=== PATIENT | male | born 1945 | race Hispanic/Latino ===

== ENCOUNTER 2019-03-26 23:30 | Observation (INO) | payer OTHER, MEDICARE ==
[~2019-03-26] VITALS: Ht 177.8 cm; Wt 76.5 kg
[~2019-03-26 23:30] MED LIST: AMLO5TAB9 PO; ASPI-1005 PO; ATOR20TA65 PO; CARV12.511 PO; FINA5TAB41 PO; ISOS10TA8 PO; LISI-613 PO; NITR0.4T50 SL; PANT40TA25 PO; TAMS0.4C32 PO
[2019-03-27 00:14] LABS: BASOPHILS % (AUTO) 0.6 % (0.0-5.0); EOSINOPHILS % (AUTO) 7.5 % (0.0-8.0); HEMATOCRIT 41.9 % (42-54); LYMPHOCYTES % (AUTO) 41.3 % (21.0-51.0); MEAN CORPUSCULAR HEMOGLOBIN 32.1 pg (27.0-33.0); MEAN CORPUSCULAR HGB CONC 34.5 g/dL (32.0-36.0); MEAN CORPUSCULAR VOLUME 93.2 fL (79-99); MONOCYTES % (AUTO) 6.3 % (3.0-13.0); NEUTROPHILS % (AUTO) 44.3 % (40.0-77.0); PLATELET COUNT (AUTO) 228 K/uL (130-400); RED BLOOD CELL COUNT(AUTO) 4.49 MIL/uL (4.50-6.20); RED CELL DISTRIBUTION WIDTH 13.6 % (11.0-15.5); WHITE BLOOD COUNT (AUTO) 5.5 K/uL (4.8-10.8)
[2019-03-27] MEDS ORDERED: NITROGLYCERIN 0.4 MG SL TAB SL ONE (00:14)
[2019-03-27] MEDS ORDERED: ASPIRIN 81MG TAB.CHEW ONE (00:15)
[2019-03-27 00:21] LABS: CREATININE 0.9 mg/dL (0.5-1.5); POTASSIUM 3.7 mmol/L (3.5-5.1)
[2019-03-27 00:24] LABS: PARTIAL THROMBOPLASTIN TIME 27.4 SEC (26.3-35.5); PROTHROMBIN TIME 10.5 SEC (9.6-11.6)
[2019-03-27 00:32] LABS: ALBUMIN 3.5 g/dL (3.5-5.0); BILIRUBIN,TOTAL 0.3 mg/dL (0.2-1.0); TOTAL PROTEIN, SERUM 6.9 g/dL (6.0-8.3)
[2019-03-27 02:40] VITALS: BP 157/87
[2019-03-27] MEDS ORDERED: ONDANSETRON HCL 4 MG/2 ML VIAL IVP PRN (03:45)
[2019-03-27] MEDS ORDERED: ACETAMINOPHEN 325 MG TAB PO PRN (03:45)
[2019-03-27] MEDS ORDERED: NITROGLYCERIN 0.4 MG SL TAB SL PRN (03:45)
[2019-03-27 05:09] LABS: HEMATOCRIT 42.3 % (42-54); MEAN CORPUSCULAR HEMOGLOBIN 32.4 pg (27.0-33.0); MEAN CORPUSCULAR HGB CONC 34.3 g/dL (32.0-36.0); MEAN CORPUSCULAR VOLUME 94.5 fL (79-99); NUCLEATED RED BLOOD CELLS 0.1 % (0.0-0.19); PLATELET COUNT (AUTO) 215 K/uL (130-400); RED BLOOD CELL COUNT(AUTO) 4.48 MIL/uL (4.50-6.20); RED CELL DISTRIBUTION WIDTH 13.6 % (11.0-15.5); WHITE BLOOD COUNT (AUTO) 5.5 K/uL (4.8-10.8)
[2019-03-27 05:23] LABS: CREATININE 0.9 mg/dL (0.5-1.5); POTASSIUM 4.5 mmol/L (3.5-5.1)
[2019-03-27 08:18] VITALS: BP 150/89
[2019-03-27] MEDS ORDERED: ASPIRIN 81MG TAB.CHEW PO SCH (09:00)
[2019-03-27] MEDS ORDERED: ENOXAPARIN SODIUM 40 MG/0.4 ML SYRINGE SQ SCH (09:00)
--- NOTE | 2019-03-27 09:01 | NUR ---
CM NOTES PT IN OBS STATUS WITH NO TRIGGERS AND NO CONCERNS VOCED- MET BRIEFLY WITH PT, CARLOTAP, AAOX3, LIVES W SPOUSE, DETAILED CM ASSESSMENT DEFERRED AT THIS TIME Addendum: 03/28/19 at 0903 by RUDYD BROWN RN CM Amended: Links added.
[2019-03-27] MEDS ORDERED: PANTOPRAZOLE SODIUM 40 MG TABLET.DR PO SCH (10:01)
[2019-03-27] MEDS ORDERED: CARVEDILOL 12.5 MG TABLET PO SCH (10:55)
[2019-03-27] MEDS ORDERED: AMLODIPINE BESYLATE 5 MG TAB PO SCH (10:56)
[2019-03-27] MEDS ORDERED: LISINOPRIL 20 MG TABLET PO SCH (10:56)
[2019-03-27] MEDS ORDERED: ISOSORBIDE MONONITRATE 20 MG TABLET PO SCH (10:56)
[2019-03-27 13:03] VITALS: BP 134/89
[2019-03-27 16:35] VITALS: BP 136/73
[2019-03-27] MEDS ORDERED: ATORVASTATIN CALCIUM 20 MG TABLET PO SCH (21:00)
[2019-03-27] MEDS ORDERED: TAMSULOSIN HCL 0.4 MG CAP.ER.24H PO SCH (21:00)
[2019-03-27] MEDS ORDERED: INSULIN HUMULIN R 100 UNIT/ML 3ML ONE (21:49)
== END 2019-03-27 18:30 | disposition home or self-care (01) ==
LOC: EDH 23:30 → EDHIP 03-27 01:20 → 3BH 03-27 01:34
PROVIDERS: ADMIT Internal Medicine Critical Care Medicine; ATTEND Internal Medicine Critical Care Medicine
DX: R00.2 Palpitations (principal); I44.7 Left bundle-branch block, unspecified; I10 Essential (primary) hypertension; E78.5 Hyperlipidemia, unspecified; K21.9 Gastro-esophageal reflux disease without esophagitis; Z87.891 Personal history of nicotine dependence; Z79.82 Long term (current) use of aspirin; Z79.899 Other long term (current) drug therapy; Z95.5 Presence of coronary angioplasty implant and graft
CPT/HCPCS: 36415; 71045; 80053; 82550; 83874; 84484 ×3; 85025; 85027; 85610; 85730; 93005; 96372; 99284; G0378 ×17; J1650; J1815; 80048

== ENCOUNTER 2019-08-29 09:42 | Emergency (ER) | payer OTHER, MEDICARE ==
[2019-08-29] MEDS ORDERED: OCTYL 2-CYANOACRYLATE 1 EACH TP ONE (09:59)
== END 2019-08-29 10:21 | disposition home or self-care (01) ==
LOC: EDH 09:42
DX: S61.412A Laceration without foreign body of left hand, initial encounter (principal); E78.5 Hyperlipidemia, unspecified; I10 Essential (primary) hypertension; W45.8XXA Other foreign body or object entering through skin, initial encounter; Y93.89 Activity, other specified; Y92.89 Other specified places as the place of occurrence of the external cause; Y99.8 Other external cause status
CPT/HCPCS: 12001; 12002

== ENCOUNTER 2019-08-30 14:04 | Emergency (ER) | payer OTHER, MEDICARE | END 2019-08-30 15:34 | disposition home or self-care (01) | LOC: EDH 14:04 | DX: T81.33XA Disruption of traumatic injury wound repair, initial encounter (principal); E78.5 Hyperlipidemia, unspecified; I10 Essential (primary) hypertension; Y83.8 Other surgical procedures as the cause of abnormal reaction of the patient, or of later complication, without mention of misadventure at the time of the procedure; Y92.89 Other specified places as the place of occurrence of the external cause ==

== ENCOUNTER 2019-12-12 19:08 | Inpatient (IN) | payer OTHER, MEDICARE ==
[~2019-12-12] VITALS: Ht 167.6 cm; Wt 72.0 kg
[~2019-12-12 19:08] MED LIST changes: +AMLO-257 PO; -AMLO5TAB9 PO; -PANT40TA25 PO; +PANT40TA54 PO
[2019-12-12 19:33] LABS: BASOPHILS % (AUTO) 0.4 % (0.0-5.0); EOSINOPHILS % (AUTO) 2.9 % (0.0-8.0); HEMATOCRIT 42.4 % (42-54); LYMPHOCYTES % (AUTO) 26.6 % (21.0-51.0); MEAN CORPUSCULAR HEMOGLOBIN 31.6 pg (27.0-33.0); MEAN CORPUSCULAR HGB CONC 34.9 g/dL (32.0-36.0); MEAN CORPUSCULAR VOLUME 90.4 fL (79-99); MONOCYTES % (AUTO) 7.8 % (3.0-13.0); NEUTROPHILS % (AUTO) 62.2 % (40.0-77.0); PLATELET COUNT (AUTO) 248 K/uL (130-400); RED BLOOD CELL COUNT(AUTO) 4.69 MIL/uL (4.50-6.20); RED CELL DISTRIBUTION WIDTH 12.9 % (11.0-15.5); WHITE BLOOD COUNT (AUTO) 8.5 K/uL (4.8-10.8)
[2019-12-12] MEDS ORDERED: NITROGLYCERIN 1GM/1 INCH PACKET TD ONE (19:35)
[2019-12-12] MEDS ORDERED: ASPIRIN 325 MG TABLET ONE (19:35)
[2019-12-12 19:46] LABS: APPEARANCE,URINE Clear (CLEAR); BILIRUBIN,URINE Negative (NEGATIVE); COLOR,URINE Yellow (YELLOW); GLUCOSE, URINE (UA) Negative (NEGATIVE); KETONES,URINE Negative (NEGATIVE); LEUKOCYTE ESTERASE ,URINE Negative (NEGATIVE); NITRATE,URINE Negative (NEGATIVE); OCCULT BLOOD,URINE Negative (NEGATIVE); PROTEIN,URINE Negative (NEGATIVE); UROBILINOGEN,URINE 0.2 mg/dL (0.2-1.0)
[2019-12-12 19:51] LABS: INR 0.95 (0.85-1.15); PARTIAL THROMBOPLASTIN TIME 27.6 SEC (26.3-35.5); PROTHROMBIN TIME 10.3 SEC (9.6-11.6)
[2019-12-12 19:55] LABS: CREATININE 0.8 mg/dL (0.5-1.5); POTASSIUM 4.4 mmol/L (3.5-5.1)
[2019-12-12 19:58] LABS: B-TYPE NATRIURETIC PEPTIDE 110 pg/mL (0-100)
[2019-12-12 20:00] LABS: ALBUMIN 3.8 g/dL (3.5-5.0); BILIRUBIN,TOTAL 0.5 mg/dL (0.2-1.0); TOTAL PROTEIN, SERUM 7.5 g/dL (6.0-8.3)
[2019-12-12] MEDS ORDERED: METOPROLOL TARTRATE 1 MG/ML 5ML VIAL IV ONE (20:32)
[2019-12-12] MEDS ORDERED: FAMOTIDINE 20MG TAB 20 MG TAB ONE (23:20)
[2019-12-12] MEDS ORDERED: ACETAMINOPHEN 325 MG TAB PO PRN (23:45)
[2019-12-12] MEDS ORDERED: ONDANSETRON HCL 4 MG/2 ML VIAL IVP PRN (23:45)
[2019-12-12 23:56] VITALS: BP 130/78
[2019-12-13] MEDS ORDERED: LANS30CA55 PO (01:33)
[2019-12-13] MEDS ORDERED: FAMO40TA7 PO (01:34)
[2019-12-13] MEDS ORDERED: BUSP5TAB3 PO (01:35)
[2019-12-13 01:57] LABS: TROPONIN I 1.06 ng/mL (0.00-0.06)
--- NOTE | 2019-12-13 03:15 | NUR ---
PT C/O CHEST PAIN, DESCRIBES IT SHARP CENTER CHEST PAIN, DOES NOT RADIATE. NO OTHER SYMPTOMS. SINUS RHYTHM 67.
[2019-12-13] MEDS: MORPHINE SULFATE 2 MG/ML 1ML SYG IVP PRN ×2 (03:17→08:48)
[2019-12-13 03:36] VITALS: BP 146/81
--- NOTE | 2019-12-13 04:04 | NUR ---
PT C/O NAUSEA AND FEELING A PAIN IN HIS THROAT COMING FROM CENTER OF CHEST. PAIN DOES NOT RADIATE. ZOFRAN GIVEN. SINUS RHYTHM 72.
[2019-12-13] MEDS: NITROGLYCERIN 0.4 MG SL TAB SL PRN ×2 (04:07→08:48)
--- NOTE | 2019-12-13 04:07 | NUR ---
PT MOANING AND C/O CHEST PAIN. RATES IT AT A 20 FROM A PAIN SCALE 1-10. EKG ORDERED, MEHRAN AKHTAR WILL DO EKG. TELE MONITOR STATES NO CHANGES IN PATIENTS HEART RATE, STEADY AT SINUS RHYTHM 60s TO 70s. PT REQUESTING NITRO SUBLINGUAL. NITRO GIVEN. LAST BP AT 146/81.
--- NOTE | 2019-12-13 04:19 | NUR ---
GIOVANA, PCP PERFORMED EKG ON PT, PT DESCRIBES PAIN BURNING FROM HIS CHEST TO HIS THROAT. PT STATES HE DOES EXPERIENCE HEARTBURN AND NOW STATES IT FEELS LIKE HEARTBURN.
--- NOTE | 2019-12-13 04:30 | NUR ---
PT IN RESTROOM COUGHING UP PHLEGM. PT HAS A DRY HACKING COUGH.
--- NOTE | 2019-12-13 04:45 | NUR ---
PT PACING IN HIS ROOM. WHEN ASKED ABOUT HIS PAIN, PT STATES HE HAS HEARTBURN AND WAS IN RESTROOM THROWING UP PHELGM. DENIES ANY CHEST PAIN.
--- NOTE | 2019-12-13 05:15 | NUR ---
PT LAYING IN BED QUIETLY WITH EYES CLOSED. NO DISTRESS NOTED. HEART RATE CONTINUES TO BE AT SINUS RHYTHM 60s.
[2019-12-13 07:02] LABS: HEMATOCRIT 46.1 % (42-54); MEAN CORPUSCULAR HGB CONC 33.8 g/dL (32.0-36.0); MEAN CORPUSCULAR VOLUME 91.5 fL (79-99); RED BLOOD CELL COUNT(AUTO) 5.04 MIL/uL (4.50-6.20); RED CELL DISTRIBUTION WIDTH 13.1 % (11.0-15.5); WHITE BLOOD COUNT (AUTO) 8.5 K/uL (4.8-10.8)
[2019-12-13 07:12] LABS: INR 0.98 (0.85-1.15); PROTHROMBIN TIME 10.6 SEC (9.6-11.6)
[2019-12-13 07:34] LABS: CREATININE 0.9 mg/dL (0.5-1.5); POTASSIUM 3.9 mmol/L (3.5-5.1)
[2019-12-13 07:45] LABS: TROPONIN I 1.13 ng/mL (0.00-0.06)
[2019-12-13 08:00] VITALS: BP 129/79
[2019-12-13] MEDS: FAMOTIDINE 20MG TAB 20 MG TAB PO SCH ×2 (08:48→21:19)
[2019-12-13] MEDS: TICAGRELOR 90 MG TABLET PO SCH ×3 (08:48→21:19)
[2019-12-13] MEDS: ASPIRIN 81 MG EC TAB PO SCH (08:48)
[2019-12-13] MEDS ORDERED: METOPROLOL TARTRATE 25 MG TAB PO SCH (09:00)
[2019-12-13] MEDS ORDERED: HEPARIN SODIUM 5000UNIT/ML 1ML VIAL SQ PRN (10:00)
[2019-12-13] MEDS ORDERED: HEPARIN 25000 UNITS/250 ML D5W 250 ML IV SCH (10:00)
[2019-12-13] MEDS ORDERED: SODIUM CHLORIDE 0.9% 500ML 500 ML IV SCH (10:50)
[2019-12-13] MEDS ORDERED: AMLODIPINE BESYLATE 5 MG TAB PO SCH (11:00)
[2019-12-13] MEDS ORDERED: ISOSORBIDE MONO 30MG TAB SR PO SCH (11:00)
[2019-12-13 11:10] VITALS: BP 123/76
[2019-12-13] MEDS ORDERED: DEXTROSE 50%-WATER 50 ML DISP.SYRIN IV PRN (12:00)
[2019-12-13] MEDS ORDERED: POTASSIUM CHLORIDE 20MEQ/100ML 100 ML IV PRN (12:00)
[2019-12-13] MEDS ORDERED: MAGNESIUM 2GM PREMIX 50ML 50 ML IV PRN (12:00)
[2019-12-13] MEDS ORDERED: GLUCAGON 1MG KIT 1 MG ML IM PRN (12:00)
[2019-12-13] MEDS ORDERED: LIDOCAINE HCL-MPF 1% 2ML VIAL IV PRN (12:00)
[2019-12-13 16:00] VITALS: BP 113/70
[2019-12-13] MEDS ORDERED: INSULIN HUMULIN R 100 UNIT/ML 3ML SQ SCH (16:30)
[2019-12-13 19:00] VITALS: BP 100/54
--- NOTE | 2019-12-13 19:02 | NUR ---
cm note met with patient and states resides athome with spouse, independent with adls/self care and ambulation, no dme. drives. dc plan is back to home. no dc needs. Addendum: 12/13/19 at 1903 by CRISPIN MCINTOSH CM Amended: Links added.
[2019-12-13] MEDS: ATORVASTATIN CALCIUM 40 MG TABLET PO SCH (21:19)
[2019-12-13] MEDS: CARVEDILOL 12.5 MG TABLET PO SCH (21:19)
[2019-12-13 23:00] VITALS: BP 102/68
[2019-12-14 03:00] VITALS: BP 113/71
[2019-12-14 05:27] LABS: HEMATOCRIT 43.1 % (42-54); MEAN CORPUSCULAR HEMOGLOBIN 31.2 pg (27.0-33.0); MEAN CORPUSCULAR HGB CONC 34.3 g/dL (32.0-36.0); MEAN CORPUSCULAR VOLUME 90.7 fL (79-99); RED BLOOD CELL COUNT(AUTO) 4.75 MIL/uL (4.50-6.20); RED CELL DISTRIBUTION WIDTH 12.9 % (11.0-15.5); WHITE BLOOD COUNT (AUTO) 8.7 K/uL (4.8-10.8)
[2019-12-14 05:42] LABS: ALBUMIN 3.3 g/dL (3.5-5.0); BILIRUBIN,TOTAL 0.4 mg/dL (0.2-1.0); CREATININE 0.9 mg/dL (0.5-1.5); MAGNESIUM 2.1 mg/dL (1.80-2.40); PHOSPHORUS 3.5 mg/dL (2.5-4.9); POTASSIUM 4.8 mmol/L (3.5-5.1); TOTAL PROTEIN, SERUM 6.9 g/dL (6.0-8.3)
[2019-12-14 07:47] VITALS: BP 136/67
[2019-12-14] MEDS: TICAGRELOR 90 MG TABLET PO SCH ×3 (07:49→20:18)
--- NOTE | 2019-12-14 07:49 | NUR ---
SPOKE WITH JANE HUFF AND HE SAID THAT PER DR. MOBLEY, PATIENT WILL GO FOR HEART CATH ON SUNDAY. HE WILL CALL MD AND ASK ONCE AGAIN THIS PATIENT IS SCHEDULED FOR CATH TODAY. AWAITING CALLBACK AT EXT 1711.
[2019-12-14] MEDS: AMLODIPINE BESYLATE 5 MG TAB PO SCH (09:24)
[2019-12-14] MEDS: CARVEDILOL 12.5 MG TABLET PO SCH ×2 (09:24→20:18)
[2019-12-14] MEDS: ISOSORBIDE MONO 30MG TAB SR PO SCH (09:24)
[2019-12-14] MEDS: ASPIRIN 81 MG EC TAB PO SCH (09:24)
[2019-12-14] MEDS: TAMSULOSIN HCL 0.4 MG CAP.ER.24H PO SCH (09:24)
[2019-12-14] MEDS: FAMOTIDINE 20MG TAB 20 MG TAB PO SCH ×2 (09:24→20:18)
[2019-12-14 12:00] VITALS: BP 119/71
[2019-12-14 16:00] VITALS: BP 105/60
[2019-12-14 20:13] VITALS: BP 120/72
[2019-12-14] MEDS: ATORVASTATIN CALCIUM 40 MG TABLET PO SCH (20:18)
[2019-12-14] MEDS: DOCUSATE SODIUM 100 MG CAP PO PRN (22:03)
[2019-12-14 23:46] VITALS: BP 97/63
[2019-12-15] VITALS (10 sets, daily range): BP systolic 90–130; BP diastolic 51–81
[2019-12-15] MEDS: TICAGRELOR 90 MG TABLET PO SCH ×3 (07:45→19:04)
[2019-12-15] MEDS: CARVEDILOL 12.5 MG TABLET PO SCH (08:04)
[2019-12-15] MEDS: AMLODIPINE BESYLATE 5 MG TAB PO SCH (08:04)
[2019-12-15] MEDS: FAMOTIDINE 20MG TAB 20 MG TAB PO SCH (08:05)
[2019-12-15] MEDS: ISOSORBIDE MONO 30MG TAB SR PO SCH (08:05)
[2019-12-15] MEDS ORDERED: ASPIRIN 325MG EC TAB 325 MG TABLET.DR PO SCH (09:00)
[2019-12-15] MEDS ORDERED: LIDOCAINE HCL 2% 20ML ONE (09:04)
[2019-12-15] MEDS ORDERED: IOHEXOL-350 50ML VIAL IV ONE (09:04)
[2019-12-15] MEDS ORDERED: BIVALIRUDIN 250 MG/VIAL IV ONE (09:04)
[2019-12-15] MEDS ORDERED: MIDAZOLAM HCL 1 MG/ML 2ML VIAL ONE (09:04)
[2019-12-15] MEDS ORDERED: IOHEXOL 350 MG/ML 100ML INFUS..BTL IV ONE ×2 (09:04→10:24)
[2019-12-15] MEDS ORDERED: NITROGLYCERIN 2 MG/VIAL VIAL IV ONE (09:05)
[2019-12-15] MEDS ORDERED: TICA90TA PO (11:40)
[2019-12-15] MEDS ORDERED: SODIUM CHLORIDE 0.9% 1000ML 1,000 ML IV SCH (11:45)
[2019-12-15] MEDS: DOCUSATE SODIUM 100 MG CAP PO PRN (17:46)
[2019-12-15] MEDS: TAMSULOSIN HCL 0.4 MG CAP.ER.24H PO SCH (17:46)
--- NOTE | 2019-12-15 19:18 | NUR ---
discharge instruction provided to zachariah . instructed on meds ,appt, and care after heart cath . patient verbalized understanding . incision to groin remained without bleed ,swelling ,,dressing dry and intact. brilinta given at discharge per md order
[2019-12-16] MEDS ORDERED: ASPIRIN 81MG TAB.CHEW PO SCH (09:00)
== END 2019-12-15 19:30 | disposition home or self-care (01) | DRG 246 ==
LOC: EDH 19:08 → OBSVTOIN 20:54 → EDHIP 20:54 → 4AH 23:36
PROVIDERS: ADMIT Internal Medicine; ATTEND Internal Medicine
PROC: 4A023N7 Measurement of Cardiac Sampling and Pressure, Left Heart, Percutaneous Approach (ICD-10-PCS; principal; 2019-12-15)
PROC: 027034Z Dilation of Coronary Artery, One Artery with Drug-eluting Intraluminal Device, Percutaneous Approach (ICD-10-PCS; 2019-12-15)
PROC: B2111ZZ Fluoroscopy of Multiple Coronary Arteries using Low Osmolar Contrast (ICD-10-PCS; 2019-12-15)
PROC: B2151ZZ Fluoroscopy of Left Heart using Low Osmolar Contrast (ICD-10-PCS; 2019-12-15)
PROC: B2131ZZ Fluoroscopy of Multiple Coronary Artery Bypass Grafts using Low Osmolar Contrast (ICD-10-PCS; 2019-12-15)
DX: I21.4 Non-ST elevation (NSTEMI) myocardial infarction (principal); I50.33 Acute on chronic diastolic (congestive) heart failure; I24.9 Acute ischemic heart disease, unspecified; E78.5 Hyperlipidemia, unspecified; K21.9 Gastro-esophageal reflux disease without esophagitis; I25.10 Atherosclerotic heart disease of native coronary artery without angina pectoris; I25.5 Ischemic cardiomyopathy; I44.7 Left bundle-branch block, unspecified; Z79.02 Long term (current) use of antithrombotics/antiplatelets; Z79.899 Other long term (current) drug therapy; Z90.49 Acquired absence of other specified parts of digestive tract; Z87.891 Personal history of nicotine dependence; Z95.1 Presence of aortocoronary bypass graft; Z83.3 Family history of diabetes mellitus; Z82.49 Family history of ischemic heart disease and other diseases of the circulatory system; I11.0 Hypertensive heart disease with heart failure
CPT/HCPCS: 36415; 71045; 80048; 80053; 81003; 82550; 83735; 83874; 83880; 84100; 84484; 85025; 85027; 85610; 85730; 93005; 93459; 99156; 99157; 99291; C1760; C1769; C1884; C1887; C1894; C9604; G0378; J0583; J1644; J2250; J2405; J3490; Q9967

== ENCOUNTER 2020-01-18 05:35 | Inpatient (IN) | payer OTHER, MEDICARE ==
[~2020-01-18] VITALS: Ht 167.6 cm; Wt 66.2 kg
[~2020-01-18 05:35] MED LIST changes: -AMLO-257 PO; +AMLO5TAB9 PO; +BUSP5TAB3 PO; +FAMO40TA7 PO; -ISOS10TA8 PO; +LANS30CA55 PO; -PANT40TA54 PO; +TICA90TA PO
[2020-01-18 07:03] LABS: BASOPHILS % (AUTO) 0.2 % (0.0-5.0); HEMATOCRIT 42.1 % (42-54); MEAN CORPUSCULAR HEMOGLOBIN 31.2 pg (27.0-33.0); MEAN CORPUSCULAR HGB CONC 35.4 g/dL (32.0-36.0); MEAN CORPUSCULAR VOLUME 88.1 fL (79-99); NEUTROPHILS % (AUTO) 76.2 % (40.0-77.0); PLATELET COUNT (AUTO) 244 K/uL (130-400); RED BLOOD CELL COUNT(AUTO) 4.78 MIL/uL (4.50-6.20); RED CELL DISTRIBUTION WIDTH 12.9 % (11.0-15.5); WHITE BLOOD COUNT (AUTO) 6.6 K/uL (4.8-10.8)
[2020-01-18] MEDS ORDERED: ZINC SULFATE 220 CAPSULE ONE (07:25)
[2020-01-18] MEDS ORDERED: DEXAMETHASONE SOD PHOSPHATE 10MG/ML 1ML VIAL ONE ×2 (07:25→20:59)
[2020-01-18] MEDS ORDERED: CEFTRIAXONE SODIUM 1 GM ONE ×2 (07:26→20:57)
[2020-01-18] MEDS ORDERED: AZITHROMYCIN 250 MG TABLET PO ONE (07:26)
[2020-01-18 07:37] LABS: CARBON DIOXIDE 25 mmol/L (21-32); CHLORIDE 97 mmol/L (101-111); CREATININE 0.9 mg/dL (0.5-1.5); GLOMERULAR FILTR. RATE CALC 87 mL/min (>60); GLUCOSE,RANDOM 100 mg/dL (70-105); INR 0.99 (0.85-1.15); PARTIAL THROMBOPLASTIN TIME 39.5 SEC (26.3-35.5); POTASSIUM 3.8 mmol/L (3.5-5.1); PROTHROMBIN TIME 10.7 SEC (9.6-11.6); SODIUM SERUM 132 mmol/L (136-145); UREA NITROGEN, BLOOD 8 mg/dL (7-18)
[2020-01-18 07:56] LABS: ALANINE AMINOTRANSFERASE 36 U/L (12-78); ALBUMIN 2.9 g/dL (3.5-5.0); ASPARTATE AMINOTRANSFERASE 53 U/L (10-37); BILIRUBIN,TOTAL 0.5 mg/dL (0.2-1.0); MYOGLOBIN 374 ng/mL (10-92); TOTAL PROTEIN, SERUM 7.2 g/dL (6.0-8.3); TROPONIN I < 0.04 ng/mL (0.00-0.06)
[2020-01-18 08:07] LABS: CREATINE KINASE, TOTAL 737 U/L (21-232)
[2020-01-18] MEDS ORDERED: AZITHROMYCIN 500MG+NS 250ML 250 ML IV ONE (08:07)
[2020-01-18 08:27] LABS: APPEARANCE,URINE Cloudy (CLEAR); BILIRUBIN,URINE Negative (NEGATIVE); COLOR,URINE Yellow (YELLOW); GLUCOSE, URINE (UA) Negative (NEGATIVE); KETONES,URINE 40 mg/dL (NEGATIVE); LEUKOCYTE ESTERASE ,URINE Negative (NEGATIVE); NITRATE,URINE Negative (NEGATIVE); OCCULT BLOOD,URINE Moderate (NEGATIVE); PROTEIN,URINE >=1000 mg/dL (NEGATIVE)
[2020-01-18 09:38] LABS: BACTERIA,URINE Few /HPF (None Seen); RBC,URINE 0-1 /HPF (0-1); SQUAMOUS EPITHELIAL CELL,UR 0-2 /HPF (0-2); WBC,URINE 0-1 /HPF (0-1)
[2020-01-18] MEDS ORDERED: LACTATED RINGERS 1000ML 1,000 ML IV SCH (09:45)
[2020-01-18] MEDS ORDERED: DEXAMETHASONE SOD PHOSPHATE 4 MG/ML 1ML VIAL IVP SCH (11:03)
[2020-01-18] MEDS ORDERED: METHYLPREDNISOLONE SOD SUCC 40MG/ML 1ML IVP SCH (14:00)
[2020-01-18] MEDS ORDERED: HYDRALAZINE HCL 20 MG/ML VIAL IV PRN (14:15)
[2020-01-18] MEDS ORDERED: LACTATED RINGERS 1000ML 1,000 ML IV ONE (15:28)
[2020-01-18] MEDS ORDERED: METHYLPREDNISOLONE SOD SUCC 125MG/2ML VIAL ONE (15:37)
[2020-01-18] MEDS: CEFTRIAXONE SODIUM 1 GM IVP SCH (20:00)
[2020-01-18] MEDS ORDERED: CARVEDILOL 12.5 MG TABLET PO ONE (20:58)
[2020-01-18] MEDS ORDERED: DOXYCYCLINE HYCLATE 100 MG TABLET PO ONE (20:58)
[2020-01-18] MEDS: DOXYCYCLINE HYCLATE 100 MG TABLET PO SCH (21:00)
[2020-01-18] MEDS: TICAGRELOR 90 MG TABLET PO SCH (21:00)
[2020-01-18] MEDS: CARVEDILOL 12.5 MG TABLET PO SCH (21:00)
[2020-01-19 04:12] LABS: BASOPHILS % (AUTO) 0.2 % (0.0-5.0); EOSINOPHILS % (AUTO) 3.1 % (0.0-8.0); HEMATOCRIT 45.1 % (42-54); MEAN CORPUSCULAR HEMOGLOBIN 30.9 pg (27.0-33.0); MEAN CORPUSCULAR HGB CONC 34.6 g/dL (32.0-36.0); MEAN CORPUSCULAR VOLUME 89.3 fL (79-99); MONOCYTES % (AUTO) 5.3 % (3.0-13.0); NEUTROPHILS % (AUTO) 77.6 % (40.0-77.0); PLATELET COUNT (AUTO) 266 K/uL (130-400); RED BLOOD CELL COUNT(AUTO) 5.05 MIL/uL (4.50-6.20); RED CELL DISTRIBUTION WIDTH 13.2 % (11.0-15.5); WHITE BLOOD COUNT (AUTO) 6.6 K/uL (4.8-10.8)
[2020-01-19] MEDS: CEFTRIAXONE SODIUM 1 GM IVP SCH ×2 (08:00→20:00)
[2020-01-19] MEDS ORDERED: ASPIRIN 81MG TAB.CHEW ONE (08:06)
[2020-01-19] MEDS ORDERED: AMLODIPINE BESYLATE 5 MG TAB ONE (08:07)
[2020-01-19] MEDS ORDERED: DEXAMETHASONE SOD PHOSPHATE 4 MG/ML 1ML VIAL ONE ×2 (08:07→20:13)
[2020-01-19] MEDS ORDERED: ASCORBIC ACID 500 MG TAB ONE (08:07)
[2020-01-19] MEDS ORDERED: CEFTRIAXONE SODIUM 1 GM ONE ×2 (08:08→20:13)
[2020-01-19] MEDS ORDERED: ENOXAPARIN SODIUM 40 MG/0.4 ML SYRINGE SQ ONE (08:08)
[2020-01-19] MEDS ORDERED: TICAGRELOR 90 MG TABLET ONE ×2 (08:09→20:13)
[2020-01-19] MEDS ORDERED: CARVEDILOL 6.25 MG TABLET PO ONE (08:09)
[2020-01-19] MEDS ORDERED: ZINC SULFATE 220 CAPSULE ONE (08:10)
[2020-01-19] MEDS ORDERED: SODIUM CHLORIDE 0.9% 100 ML IV ONE (08:11)
[2020-01-19] MEDS: ZINC SULFATE 220 CAPSULE PO SCH (09:00)
[2020-01-19] MEDS: CARVEDILOL 12.5 MG TABLET PO SCH ×2 (09:00→21:00)
[2020-01-19] MEDS: TICAGRELOR 90 MG TABLET PO SCH ×2 (09:00→21:00)
[2020-01-19] MEDS: ASPIRIN 81MG TAB.CHEW PO SCH (09:00)
[2020-01-19] MEDS: AMLODIPINE BESYLATE 5 MG TAB PO SCH (09:00)
[2020-01-19] MEDS: ASCORBIC ACID 500 MG TAB PO SCH (09:00)
[2020-01-19] MEDS: DOXYCYCLINE HYCLATE 100 MG TABLET PO SCH ×2 (09:00→21:00)
--- NOTE | 2020-01-19 13:27 | NUR ---
ATTEMPTED TO DO IA CALL TO SPOUSE LISTED ON FACE SHEET- NO ANSWER. CALL TP PATIENT [phone], ATTEMPTED IA, DANNA STATES HE DOES NOT KNOW WHY HE IS BEING ASKED THESE QUESTIONS, HE HAS ONLY BEEN SICK FOR A LITTLE WHILE, AND YES HE DRIVES. AND HE HAS HIS WIFES PHONE, SO SHE DOES NOT HAVE A PHONE AT THE HOUSE. WILL ATTEMPT AGAIN TO DISCUSS WITH PATIENT, CRAIG TO FOLLOW Addendum: 01/19/20 at 1330 by RUDDY BROWN RN CM Amended: Links added.
[2020-01-19] MEDS: ENOXAPARIN SODIUM 40 MG/0.4 ML SYRINGE SQ SCH (20:00)
[2020-01-20 05:37] LABS: BASOPHILS % (AUTO) 0.1 % (0.0-5.0); HEMATOCRIT 44.3 % (42-54); LYMPHOCYTES % (AUTO) 3.6 % (21.0-51.0); MEAN CORPUSCULAR HGB CONC 34.5 g/dL (32.0-36.0); MEAN CORPUSCULAR VOLUME 89.7 fL (79-99); MONOCYTES % (AUTO) 3.8 % (3.0-13.0); NEUTROPHILS % (AUTO) 91.6 % (40.0-77.0); PLATELET COUNT (AUTO) 327 K/uL (130-400); RED BLOOD CELL COUNT(AUTO) 4.94 MIL/uL (4.50-6.20); RED CELL DISTRIBUTION WIDTH 13.2 % (11.0-15.5)
[2020-01-20 05:55] VITALS: BP 147/82
[2020-01-20 06:50] LABS: CRP QUANTITATIVE 70.5 mg/L (0.00-9.0); POTASSIUM 4.2 mmol/L (3.5-5.1)
[2020-01-20 06:51] LABS: ALBUMIN 2.6 g/dL (3.5-5.0); BILIRUBIN,TOTAL 0.3 mg/dL (0.2-1.0); CREATININE 0.9 mg/dL (0.5-1.5); TOTAL PROTEIN, SERUM 6.9 g/dL (6.0-8.3)
[2020-01-20 08:05] LABS: ALBUMIN 2.4 g/dL (3.5-5.0); BILIRUBIN,TOTAL 0.4 mg/dL (0.2-1.0); CREATININE 0.7 mg/dL (0.5-1.5); CRP QUANTITATIVE 29.8 mg/L (0.00-9.0); POTASSIUM 4.6 mmol/L (3.5-5.1); TOTAL PROTEIN, SERUM 6.4 g/dL (6.0-8.3)
[2020-01-20 08:30] VITALS: BP 130/73
[2020-01-20] MEDS: CEFTRIAXONE SODIUM 1 GM IVP SCH ×2 (08:43→20:35)
[2020-01-20] MEDS: ZINC SULFATE 220 CAPSULE PO SCH (08:43)
[2020-01-20] MEDS: ASCORBIC ACID 500 MG TAB PO SCH (08:43)
[2020-01-20] MEDS: TICAGRELOR 90 MG TABLET PO SCH ×2 (08:44→20:38)
[2020-01-20] MEDS: CARVEDILOL 12.5 MG TABLET PO SCH ×2 (08:44→20:37)
[2020-01-20] MEDS: AMLODIPINE BESYLATE 5 MG TAB PO SCH (08:45)
[2020-01-20] MEDS: DOXYCYCLINE HYCLATE 100 MG TABLET PO SCH ×2 (08:45→20:38)
[2020-01-20] MEDS: ASPIRIN 81MG TAB.CHEW PO SCH (08:45)
[2020-01-20] MEDS: ENOXAPARIN SODIUM 40 MG/0.4 ML SYRINGE SQ SCH (08:46)
[2020-01-20] MEDS ORDERED: DEXAMETHASONE SOD PHOSPHATE 4 MG/ML 1ML VIAL IVP SCH (09:00)
[2020-01-20 12:10] VITALS: BP 122/69
[2020-01-20 17:16] VITALS: BP 140/73
[2020-01-20 20:00] VITALS: BP 137/85
[2020-01-20] MEDS: DEXAMETHASONE SOD PHOSPHATE 4 MG/ML 1ML VIAL IVP SCH (20:36)
[2020-01-20] MEDS: GUAIFENESIN 600 MG TABLET.ER PO SCH (20:38)
[2020-01-20 23:43] VITALS: BP 126/66
[2020-01-21 03:44] VITALS: BP 129/66
[2020-01-21] MEDS: ASCORBIC ACID 500 MG TAB PO SCH (07:55)
[2020-01-21] MEDS: CARVEDILOL 12.5 MG TABLET PO SCH ×2 (07:56→20:55)
[2020-01-21] MEDS: TICAGRELOR 90 MG TABLET PO SCH ×2 (07:56→20:54)
[2020-01-21] MEDS: ZINC SULFATE 220 CAPSULE PO SCH (07:56)
[2020-01-21] MEDS: ASPIRIN 81MG TAB.CHEW PO SCH (07:56)
[2020-01-21] MEDS: CEFTRIAXONE SODIUM 1 GM IVP SCH ×2 (07:57→20:53)
[2020-01-21] MEDS: ENOXAPARIN SODIUM 40 MG/0.4 ML SYRINGE SQ SCH (07:57)
[2020-01-21] MEDS: AMLODIPINE BESYLATE 5 MG TAB PO SCH (07:57)
[2020-01-21] MEDS: DOXYCYCLINE HYCLATE 100 MG TABLET PO SCH ×2 (07:57→21:01)
[2020-01-21] MEDS: DEXAMETHASONE SOD PHOSPHATE 4 MG/ML 1ML VIAL IVP SCH ×2 (07:57→20:53)
[2020-01-21 08:00] VITALS: BP 135/73
[2020-01-21 08:07] LABS: BASOPHILS % (AUTO) 0.2 % (0.0-5.0); HEMATOCRIT 40.6 % (42-54); MEAN CORPUSCULAR HEMOGLOBIN 31.1 pg (27.0-33.0); MEAN CORPUSCULAR HGB CONC 34.7 g/dL (32.0-36.0); MEAN CORPUSCULAR VOLUME 89.4 fL (79-99); MONOCYTES % (AUTO) 3.5 % (3.0-13.0); NEUTROPHILS % (AUTO) 91.4 % (40.0-77.0); PLATELET COUNT (AUTO) 356 K/uL (130-400); RED BLOOD CELL COUNT(AUTO) 4.54 MIL/uL (4.50-6.20); RED CELL DISTRIBUTION WIDTH 13.2 % (11.0-15.5); WHITE BLOOD COUNT (AUTO) 12.5 K/uL (4.8-10.8)
[2020-01-21 08:30] LABS: ALANINE AMINOTRANSFERASE 48 U/L (12-78); ALBUMIN 2.3 g/dL (3.5-5.0); ASPARTATE AMINOTRANSFERASE 36 U/L (10-37); BILIRUBIN,TOTAL 0.5 mg/dL (0.2-1.0); CARBON DIOXIDE 27 mmol/L (21-32); CHLORIDE 100 mmol/L (101-111); CREATININE 0.7 mg/dL (0.5-1.5); GLOMERULAR FILTR. RATE CALC 117 mL/min (>60); GLUCOSE,RANDOM 125 mg/dL (70-105); LACTATE DEHYDROGENASE 321 U/L (81-234); SODIUM SERUM 133 mmol/L (136-145); TOTAL PROTEIN, SERUM 6.1 g/dL (6.0-8.3); UREA NITROGEN, BLOOD 15 mg/dL (7-18)
[2020-01-21] MEDS: GUAIFENESIN 600 MG TABLET.ER PO SCH ×2 (09:40→20:55)
[2020-01-21 12:00] VITALS: BP 115/52
[2020-01-21 16:00] VITALS: BP 97/61
[2020-01-21 21:16] VITALS: BP 130/73
[2020-01-22 00:57] VITALS: BP 111/61
[2020-01-22 04:46] VITALS: BP 125/64
[2020-01-22 06:05] LABS: BASOPHILS % (AUTO) 0.1 % (0.0-5.0); HEMATOCRIT 39.9 % (42-54); LYMPHOCYTES % (AUTO) 5.4 % (21.0-51.0); MEAN CORPUSCULAR HEMOGLOBIN 31.3 pg (27.0-33.0); MEAN CORPUSCULAR HGB CONC 35.6 g/dL (32.0-36.0); MEAN CORPUSCULAR VOLUME 88.1 fL (79-99); MONOCYTES % (AUTO) 4.2 % (3.0-13.0); NEUTROPHILS % (AUTO) 89.4 % (40.0-77.0); PLATELET COUNT (AUTO) 357 K/uL (130-400); RED BLOOD CELL COUNT(AUTO) 4.53 MIL/uL (4.50-6.20); WHITE BLOOD COUNT (AUTO) 10.4 K/uL (4.8-10.8)
[2020-01-22 07:13] LABS: ALANINE AMINOTRANSFERASE 49 U/L (12-78); ALBUMIN 2.1 g/dL (3.5-5.0); ASPARTATE AMINOTRANSFERASE 29 U/L (10-37); BILIRUBIN,TOTAL 0.6 mg/dL (0.2-1.0); CARBON DIOXIDE 25 mmol/L (21-32); CHLORIDE 99 mmol/L (101-111); CREATININE 0.6 mg/dL (0.5-1.5); GLOMERULAR FILTR. RATE CALC 140 mL/min (>60); GLUCOSE,RANDOM 120 mg/dL (70-105); LACTATE DEHYDROGENASE 380 U/L (81-234); POTASSIUM 4.3 mmol/L (3.5-5.1); SODIUM SERUM 133 mmol/L (136-145); TOTAL PROTEIN, SERUM 6.1 g/dL (6.0-8.3); UREA NITROGEN, BLOOD 16 mg/dL (7-18)
[2020-01-22] MEDS: CEFTRIAXONE SODIUM 1 GM IVP SCH ×2 (08:03→20:33)
[2020-01-22] MEDS: ZINC SULFATE 220 CAPSULE PO SCH (08:06)
[2020-01-22] MEDS: ENOXAPARIN SODIUM 40 MG/0.4 ML SYRINGE SQ SCH (08:06)
[2020-01-22] MEDS: ASCORBIC ACID 500 MG TAB PO SCH (08:07)
[2020-01-22] MEDS: ASPIRIN 81MG TAB.CHEW PO SCH (08:07)
[2020-01-22] MEDS: GUAIFENESIN 600 MG TABLET.ER PO SCH ×2 (08:07→20:35)
[2020-01-22] MEDS: DOXYCYCLINE HYCLATE 100 MG TABLET PO SCH ×2 (08:08→20:35)
[2020-01-22] MEDS: TICAGRELOR 90 MG TABLET PO SCH ×2 (08:08→20:34)
[2020-01-22] MEDS: DEXAMETHASONE SOD PHOSPHATE 4 MG/ML 1ML VIAL IVP SCH ×2 (08:08→20:36)
[2020-01-22] MEDS: AMLODIPINE BESYLATE 5 MG TAB PO SCH (09:00)
[2020-01-22] MEDS: CARVEDILOL 12.5 MG TABLET PO SCH ×2 (09:00→20:35)
[2020-01-22 09:27] VITALS: BP 123/63
[2020-01-22 13:54] VITALS: BP 134/74
--- NOTE | 2020-01-22 15:37 | NUR ---
DR. FREEMAN ROUNDED ON THE PT AND STATED THAT SINCE THE PT IS IMPROVING HE WILL NOT NEED THE COVALESENT PLASMA. PT IS CURRENTLY ON 3L NC O2SATS AT 94%.
[2020-01-22 17:18] VITALS: BP 136/68
[2020-01-22 20:00] VITALS: BP 147/64
[2020-01-23 00:25] VITALS: BP 133/71
[2020-01-23 04:20] VITALS: BP 123/68
[2020-01-23 06:48] LABS: BASOPHILS % (AUTO) 0.1 % (0.0-5.0); HEMATOCRIT 39.7 % (42-54); LYMPHOCYTES % (AUTO) 3.8 % (21.0-51.0); MEAN CORPUSCULAR HEMOGLOBIN 30.4 pg (27.0-33.0); MEAN CORPUSCULAR HGB CONC 34.5 g/dL (32.0-36.0); MONOCYTES % (AUTO) 4.9 % (3.0-13.0); NEUTROPHILS % (AUTO) 90.5 % (40.0-77.0); PLATELET COUNT (AUTO) 395 K/uL (130-400); RED BLOOD CELL COUNT(AUTO) 4.51 MIL/uL (4.50-6.20); RED CELL DISTRIBUTION WIDTH 12.6 % (11.0-15.5); WHITE BLOOD COUNT (AUTO) 10.6 K/uL (4.8-10.8)
[2020-01-23 07:09] LABS: ALANINE AMINOTRANSFERASE 38 U/L (12-78); ALBUMIN 2.2 g/dL (3.5-5.0); ASPARTATE AMINOTRANSFERASE 23 U/L (10-37); BILIRUBIN,TOTAL 0.5 mg/dL (0.2-1.0); CARBON DIOXIDE 27 mmol/L (21-32); CHLORIDE 100 mmol/L (101-111); CREATININE 0.6 mg/dL (0.5-1.5); GLOMERULAR FILTR. RATE CALC 140 mL/min (>60); GLUCOSE,RANDOM 119 mg/dL (70-105); LACTATE DEHYDROGENASE 311 U/L (81-234); POTASSIUM 4.3 mmol/L (3.5-5.1); SODIUM SERUM 132 mmol/L (136-145); TOTAL PROTEIN, SERUM 5.8 g/dL (6.0-8.3); UREA NITROGEN, BLOOD 17 mg/dL (7-18)
[2020-01-23] MEDS: CEFTRIAXONE SODIUM 1 GM IVP SCH ×2 (08:37→21:02)
[2020-01-23] MEDS: GUAIFENESIN 600 MG TABLET.ER PO SCH ×2 (08:37→21:03)
[2020-01-23] MEDS: TICAGRELOR 90 MG TABLET PO SCH ×2 (08:38→21:03)
[2020-01-23] MEDS: DEXAMETHASONE SOD PHOSPHATE 4 MG/ML 1ML VIAL IVP SCH ×2 (08:40→21:04)
[2020-01-23] MEDS: ASPIRIN 81MG TAB.CHEW PO SCH (08:40)
[2020-01-23] MEDS: ASCORBIC ACID 500 MG TAB PO SCH (08:40)
[2020-01-23] MEDS: DOXYCYCLINE HYCLATE 100 MG TABLET PO SCH ×2 (08:41→21:03)
[2020-01-23] MEDS: CARVEDILOL 12.5 MG TABLET PO SCH ×2 (08:44→21:00)
[2020-01-23] MEDS: ZINC SULFATE 220 CAPSULE PO SCH (08:44)
[2020-01-23] MEDS: AMLODIPINE BESYLATE 5 MG TAB PO SCH (08:44)
[2020-01-23] MEDS: ENOXAPARIN SODIUM 40 MG/0.4 ML SYRINGE SQ SCH (08:45)
[2020-01-23 08:55] VITALS: BP 131/70
[2020-01-23 11:11] VITALS: BP 142/70
[2020-01-23] MEDS: SIMETHICONE 80 MG TAB.CHEW PO PRN ×2 (12:04→21:03)
[2020-01-23 16:42] VITALS: BP 127/72
[2020-01-23] MEDS: ACETYLCYSTEINE 600 MG CAPSULE PO SCH (21:03)
[2020-01-23 21:15] VITALS: BP 113/84
[2020-01-24 00:37] VITALS: BP 133/74
[2020-01-24 04:40] VITALS: BP 125/73
[2020-01-24 06:56] LABS: BASOPHILS % (AUTO) 0.1 % (0.0-5.0); LYMPHOCYTES % (AUTO) 4.1 % (21.0-51.0); MEAN CORPUSCULAR HEMOGLOBIN 30.8 pg (27.0-33.0); MEAN CORPUSCULAR VOLUME 88.1 fL (79-99); MONOCYTES % (AUTO) 5.3 % (3.0-13.0); NEUTROPHILS % (AUTO) 89.1 % (40.0-77.0); PLATELET COUNT (AUTO) 444 K/uL (130-400); RED BLOOD CELL COUNT(AUTO) 4.77 MIL/uL (4.50-6.20); RED CELL DISTRIBUTION WIDTH 12.6 % (11.0-15.5); WHITE BLOOD COUNT (AUTO) 9.5 K/uL (4.8-10.8)
--- NOTE | 2020-01-24 07:03 | NUR ---
BS BS 75 AT 0534 WAS IN ERROR, WAS FOR ROOM 423.
[2020-01-24 07:10] LABS: ALANINE AMINOTRANSFERASE 42 U/L (12-78); ALBUMIN 2.2 g/dL (3.5-5.0); ASPARTATE AMINOTRANSFERASE 19 U/L (10-37); BILIRUBIN,TOTAL 0.6 mg/dL (0.2-1.0); CARBON DIOXIDE 26 mmol/L (21-32); CHLORIDE 100 mmol/L (101-111); CREATININE 0.6 mg/dL (0.5-1.5); GLOMERULAR FILTR. RATE CALC 140 mL/min (>60); GLUCOSE,RANDOM 116 mg/dL (70-105); LACTATE DEHYDROGENASE 293 U/L (81-234); POTASSIUM 4.2 mmol/L (3.5-5.1); SODIUM SERUM 132 mmol/L (136-145); TOTAL PROTEIN, SERUM 6.1 g/dL (6.0-8.3); UREA NITROGEN, BLOOD 14 mg/dL (7-18)
[2020-01-24] MEDS: TICAGRELOR 90 MG TABLET PO SCH ×2 (08:42→21:45)
[2020-01-24] MEDS: ACETYLCYSTEINE 600 MG CAPSULE PO SCH ×2 (08:42→21:44)
[2020-01-24] MEDS: GUAIFENESIN 600 MG TABLET.ER PO SCH ×2 (08:42→21:46)
[2020-01-24] MEDS: ASPIRIN 81MG TAB.CHEW PO SCH (08:43)
[2020-01-24] MEDS: ZINC SULFATE 220 CAPSULE PO SCH (08:43)
[2020-01-24] MEDS: CARVEDILOL 12.5 MG TABLET PO SCH ×2 (08:43→21:47)
[2020-01-24] MEDS: ASCORBIC ACID 500 MG TAB PO SCH (08:43)
[2020-01-24] MEDS: AMLODIPINE BESYLATE 5 MG TAB PO SCH (08:44)
[2020-01-24] MEDS: DOXYCYCLINE HYCLATE 100 MG TABLET PO SCH ×2 (08:44→21:46)
[2020-01-24] MEDS: CEFTRIAXONE SODIUM 1 GM IVP SCH ×2 (08:46→21:47)
[2020-01-24] MEDS: DEXAMETHASONE SOD PHOSPHATE 4 MG/ML 1ML VIAL IVP SCH ×2 (08:46→21:47)
[2020-01-24] MEDS: ENOXAPARIN SODIUM 40 MG/0.4 ML SYRINGE SQ SCH (08:46)
[2020-01-24 09:12] VITALS: BP 134/77
[2020-01-24 11:11] VITALS: BP 120/65
--- NOTE | 2020-01-24 11:40 | NUR ---
gerber with Dr. Jay notified of ddimer results, no new orders given at this time,
[2020-01-24] MEDS ORDERED: MAG HYDROX/AL HYDROX/SIMETH ES 30 ML SUSP UDCUP PO PRN (15:45)
[2020-01-24 15:57] VITALS: BP 121/76
[2020-01-24 20:35] VITALS: BP 107/67
[2020-01-24] MEDS: SIMETHICONE 80 MG TAB.CHEW PO PRN (22:03)
[2020-01-25] VITALS (7 sets, daily range): BP systolic 99–128; BP diastolic 56–70
[2020-01-25 04:41] LABS: BASOPHILS % (AUTO) 0.2 % (0.0-5.0); HEMATOCRIT 38.9 % (42-54); MEAN CORPUSCULAR HEMOGLOBIN 30.5 pg (27.0-33.0); MEAN CORPUSCULAR HGB CONC 34.7 g/dL (32.0-36.0); MEAN CORPUSCULAR VOLUME 87.8 fL (79-99); MONOCYTES % (AUTO) 4.5 % (3.0-13.0); NEUTROPHILS % (AUTO) 90.8 % (40.0-77.0); PLATELET COUNT (AUTO) 446 K/uL (130-400); RED BLOOD CELL COUNT(AUTO) 4.43 MIL/uL (4.50-6.20); RED CELL DISTRIBUTION WIDTH 12.6 % (11.0-15.5); WHITE BLOOD COUNT (AUTO) 11.2 K/uL (4.8-10.8)
[2020-01-25 04:57] LABS: ALANINE AMINOTRANSFERASE 42 U/L (12-78); ALBUMIN 2.1 g/dL (3.5-5.0); ASPARTATE AMINOTRANSFERASE 18 U/L (10-37); BILIRUBIN,TOTAL 0.6 mg/dL (0.2-1.0); CARBON DIOXIDE 27 mmol/L (21-32); CHLORIDE 98 mmol/L (101-111); CREATININE 0.7 mg/dL (0.5-1.5); GLOMERULAR FILTR. RATE CALC 117 mL/min (>60); GLUCOSE,RANDOM 121 mg/dL (70-105); LACTATE DEHYDROGENASE 252 U/L (81-234); POTASSIUM 4.3 mmol/L (3.5-5.1); SODIUM SERUM 131 mmol/L (136-145); TOTAL PROTEIN, SERUM 5.6 g/dL (6.0-8.3); UREA NITROGEN, BLOOD 17 mg/dL (7-18)
[2020-01-25] MEDS: AMLODIPINE BESYLATE 5 MG TAB PO SCH (08:58)
[2020-01-25] MEDS: GUAIFENESIN 600 MG TABLET.ER PO SCH ×2 (08:58→20:52)
[2020-01-25] MEDS: CEFTRIAXONE SODIUM 1 GM IVP SCH (08:59)
[2020-01-25] MEDS: ASCORBIC ACID 500 MG TAB PO SCH (08:59)
[2020-01-25] MEDS: ZINC SULFATE 220 CAPSULE PO SCH (08:59)
[2020-01-25] MEDS: CARVEDILOL 12.5 MG TABLET PO SCH ×2 (08:59→20:58)
[2020-01-25] MEDS: DOXYCYCLINE HYCLATE 100 MG TABLET PO SCH (08:59)
[2020-01-25] MEDS: ACETYLCYSTEINE 600 MG CAPSULE PO SCH ×2 (08:59→20:53)
[2020-01-25] MEDS: ASPIRIN 81MG TAB.CHEW PO SCH (08:59)
[2020-01-25] MEDS: TICAGRELOR 90 MG TABLET PO SCH ×2 (09:00→20:52)
[2020-01-25] MEDS: ENOXAPARIN SODIUM 40 MG/0.4 ML SYRINGE SQ SCH (09:02)
[2020-01-25] MEDS: DEXAMETHASONE SOD PHOSPHATE 4 MG/ML 1ML VIAL IVP SCH ×2 (09:02→20:53)
--- NOTE | 2020-01-25 18:21 | NUR ---
UPON ASSESSMENT PT IS ALERT AND CONVERSANT, APPEARS DISTRESS FREE, PT SP02 96% NC3L. ORDERS TO WEAN PT. DECREASED TO 2 LITERS. PT TOLERATING OKAY. WILL MONITOR ORDERED. URINAL AT BEDSIDE. NO FURTHER NEEDS AT THIS TIME. PT ASSISTED WITH MORNING BATH BY MENTAL HEALTH THERAPIST.
[2020-01-25] MEDS: SIMETHICONE 80 MG TAB.CHEW PO PRN (20:52)
[2020-01-26 03:25] VITALS: BP 110/66
[2020-01-26 06:29] LABS: BASOPHILS % (AUTO) 0.3 % (0.0-5.0); HEMATOCRIT 40.7 % (42-54); LYMPHOCYTES % (AUTO) 3.6 % (21.0-51.0); MEAN CORPUSCULAR HEMOGLOBIN 30.9 pg (27.0-33.0); MEAN CORPUSCULAR HGB CONC 34.9 g/dL (32.0-36.0); MEAN CORPUSCULAR VOLUME 88.5 fL (79-99); MONOCYTES % (AUTO) 4.2 % (3.0-13.0); NEUTROPHILS % (AUTO) 90.7 % (40.0-77.0); PLATELET COUNT (AUTO) 498 K/uL (130-400); RED CELL DISTRIBUTION WIDTH 12.6 % (11.0-15.5); WHITE BLOOD COUNT (AUTO) 11.3 K/uL (4.8-10.8)
[2020-01-26 06:47] LABS: ALANINE AMINOTRANSFERASE 42 U/L (12-78); ALBUMIN 2.2 g/dL (3.5-5.0); ASPARTATE AMINOTRANSFERASE 17 U/L (10-37); BILIRUBIN,TOTAL 0.6 mg/dL (0.2-1.0); CARBON DIOXIDE 26 mmol/L (21-32); CHLORIDE 99 mmol/L (101-111); CREATININE 0.7 mg/dL (0.5-1.5); GLOMERULAR FILTR. RATE CALC 117 mL/min (>60); GLUCOSE,RANDOM 114 mg/dL (70-105); LACTATE DEHYDROGENASE 232 U/L (81-234); POTASSIUM 4.4 mmol/L (3.5-5.1); SODIUM SERUM 132 mmol/L (136-145); TOTAL PROTEIN, SERUM 5.8 g/dL (6.0-8.3); UREA NITROGEN, BLOOD 13 mg/dL (7-18)
[2020-01-26 08:20] VITALS: BP 119/64
[2020-01-26] MEDS: ZINC SULFATE 220 CAPSULE PO SCH (09:32)
[2020-01-26] MEDS: GUAIFENESIN 600 MG TABLET.ER PO SCH ×2 (09:32→21:56)
[2020-01-26] MEDS: DEXAMETHASONE SOD PHOSPHATE 4 MG/ML 1ML VIAL IVP SCH ×2 (09:32→21:55)
[2020-01-26] MEDS: AMLODIPINE BESYLATE 5 MG TAB PO SCH (09:33)
[2020-01-26] MEDS: ASCORBIC ACID 500 MG TAB PO SCH (09:33)
[2020-01-26] MEDS: TICAGRELOR 90 MG TABLET PO SCH ×2 (09:33→21:55)
[2020-01-26] MEDS: CARVEDILOL 12.5 MG TABLET PO SCH ×2 (09:33→21:00)
[2020-01-26] MEDS: ASPIRIN 81MG TAB.CHEW PO SCH (09:33)
[2020-01-26] MEDS: ENOXAPARIN SODIUM 40 MG/0.4 ML SYRINGE SQ SCH (09:35)
[2020-01-26] MEDS: ACETYLCYSTEINE 600 MG CAPSULE PO SCH ×2 (09:35→21:56)
[2020-01-26 12:06] VITALS: BP 103/65
[2020-01-26 17:02] VITALS: BP 109/66
[2020-01-26] MEDS: BENZONATATE 100 MG CAPSULE PO SCH (19:00)
[2020-01-26 20:55] VITALS: BP 107/50
--- NOTE | 2020-01-26 21:00 | NUR ---
pts Coreg held at this time; pts BP = 107/50 and HR = 61;
[2020-01-27 01:53] VITALS: BP 114/66
[2020-01-27 05:02] VITALS: BP 124/69
[2020-01-27 05:12] LABS: BASOPHILS % (AUTO) 0.2 % (0.0-5.0); HEMATOCRIT 41.4 % (42-54); MEAN CORPUSCULAR HGB CONC 34.1 g/dL (32.0-36.0); MEAN CORPUSCULAR VOLUME 88.1 fL (79-99); MONOCYTES % (AUTO) 3.1 % (3.0-13.0); NEUTROPHILS % (AUTO) 92.3 % (40.0-77.0); PLATELET COUNT (AUTO) 505 K/uL (130-400); RED CELL DISTRIBUTION WIDTH 12.8 % (11.0-15.5); WHITE BLOOD COUNT (AUTO) 12.5 K/uL (4.8-10.8)
[2020-01-27 05:40] LABS: ALANINE AMINOTRANSFERASE 44 U/L (12-78); ALBUMIN 2.1 g/dL (3.5-5.0); ASPARTATE AMINOTRANSFERASE 14 U/L (10-37); BILIRUBIN,TOTAL 0.6 mg/dL (0.2-1.0); CARBON DIOXIDE 25 mmol/L (21-32); CHLORIDE 100 mmol/L (101-111); CREATININE 0.7 mg/dL (0.5-1.5); GLOMERULAR FILTR. RATE CALC 117 mL/min (>60); GLUCOSE,RANDOM 116 mg/dL (70-105); LACTATE DEHYDROGENASE 208 U/L (81-234); POTASSIUM 4.9 mmol/L (3.5-5.1); SODIUM SERUM 134 mmol/L (136-145); TOTAL PROTEIN, SERUM 5.8 g/dL (6.0-8.3); UREA NITROGEN, BLOOD 15 mg/dL (7-18)
[2020-01-27] MEDS: BENZONATATE 100 MG CAPSULE PO SCH ×3 (05:48→21:49)
[2020-01-27] MEDS: CARVEDILOL 3.125 MG TABLET PO SCH ×2 (09:00→21:00)
[2020-01-27] MEDS: ASCORBIC ACID 500 MG TAB PO SCH (09:00)
[2020-01-27 09:45] VITALS: BP 95/57
[2020-01-27] MEDS: ACETYLCYSTEINE 600 MG CAPSULE PO SCH ×2 (09:58→21:49)
[2020-01-27] MEDS: TICAGRELOR 90 MG TABLET PO SCH ×2 (09:58→21:49)
[2020-01-27] MEDS: AMLODIPINE BESYLATE 5 MG TAB PO SCH (09:59)
[2020-01-27] MEDS: ZINC SULFATE 220 CAPSULE PO SCH (09:59)
[2020-01-27] MEDS: GUAIFENESIN 600 MG TABLET.ER PO SCH ×2 (09:59→21:49)
[2020-01-27] MEDS: ASPIRIN 81MG TAB.CHEW PO SCH (10:00)
[2020-01-27] MEDS: ENOXAPARIN SODIUM 40 MG/0.4 ML SYRINGE SQ SCH (10:01)
[2020-01-27] MEDS: DEXAMETHASONE SOD PHOSPHATE 4 MG/ML 1ML VIAL IVP SCH ×3 (10:01→21:49)
--- NOTE | 2020-01-27 10:17 | NUR ---
RDSCREEN - LOS X 9 Pt positve for COVID-19. Spoke with Pt via phone. Pt reports improved appetite, no nausea or vomiting at this time, ate 100% breakfast this AM. Pt does report constipation, RN notified. WBC 12.5, Alb 2.1. ZnSO4, Vit C, N-acetylcysteine in place. Recommend 500mg Vit C BID Recommend 60mL ProMod QD RD to continue to monitor. Please notify as additional nutrition concerns arise. Thank you.
[2020-01-27 12:24] VITALS: BP 105/58
[2020-01-27] MEDS ORDERED: LACTULOSE 20 GM/30 ML UDCUP PO SCH (12:45)
[2020-01-27] MEDS ORDERED: POLYETHYLENE GLYCOL 3350 17 GM POWD.PACK PO SCH (13:45)
--- NOTE | 2020-01-27 15:05 | NUR ---
Family notification Spoke to Lacey Guerin and gave her an update regarding patient's condition. Verbalized understanding. All questions were answered and all concerns addressed. Ms. Guerin was very grateful for call.
--- NOTE | 2020-01-27 15:40 | NUR ---
ADDENDUM 01/26/20 FAMILY NOTIFICATION AND UPDATE SPOKE TO JOHNNA ROTHMAN GIVEN PT STATUS UPDATE AND PLAN OF CARE . ALL QUESTIONS ANSWERED. GIVEN PASSWORD FOR CALLS
[2020-01-27 17:44] VITALS: BP 95/61
--- NOTE | 2020-01-27 18:36 | NUR ---
pt does not qualify for home oxygen per RT. pt reports no bm x3 days, new order given by Dr. Cervantes, one time dose of lactulose and miralax administered. no results yet.
[2020-01-27 20:00] VITALS: BP 116/66
[2020-01-28] VITALS: BP 100/56
[2020-01-28 03:56] VITALS: BP 115/72
[2020-01-28] MEDS: BENZONATATE 100 MG CAPSULE PO SCH ×2 (05:27→14:46)
[2020-01-28 07:33] LABS: LACTATE DEHYDROGENASE 195 U/L (81-234)
[2020-01-28 08:00] VITALS: BP 118/68
[2020-01-28] MEDS ORDERED: POLYETHYLENE GLYCOL 3350 17 GM POWD.PACK PO SCH (09:00)
[2020-01-28] MEDS: GUAIFENESIN 600 MG TABLET.ER PO SCH (09:12)
[2020-01-28] MEDS: ASPIRIN 81MG TAB.CHEW PO SCH (09:12)
[2020-01-28] MEDS: ACETYLCYSTEINE 600 MG CAPSULE PO SCH (09:12)
[2020-01-28] MEDS: ZINC SULFATE 220 CAPSULE PO SCH (09:13)
[2020-01-28] MEDS: TICAGRELOR 90 MG TABLET PO SCH (09:13)
[2020-01-28] MEDS: ASCORBIC ACID 500 MG TAB PO SCH (09:13)
[2020-01-28] MEDS: DEXAMETHASONE SOD PHOSPHATE 4 MG/ML 1ML VIAL IVP SCH ×2 (09:14→14:46)
[2020-01-28] MEDS: AMLODIPINE BESYLATE 5 MG TAB PO SCH (09:14)
[2020-01-28] MEDS: ENOXAPARIN SODIUM 40 MG/0.4 ML SYRINGE SQ SCH (09:15)
[2020-01-28] MEDS: CARVEDILOL 3.125 MG TABLET PO SCH (09:17)
[2020-01-28 12:00] VITALS: BP 112/60
--- NOTE | 2020-01-28 12:58 | NUR ---
PT REPORTS HAVING A BOWEL MOVEMENT YESTERDAY.
== END 2020-01-28 18:12 | disposition home or self-care (01) | DRG 177 ==
LOC: EDH 05:35 → EDHIP 07:40 → 4DH 01-20 05:52
PROVIDERS: ADMIT Internal Medicine; ATTEND Internal Medicine
DX: U07.1 COVID-19 (principal); J12.89 Other viral pneumonia; J96.01 Acute respiratory failure with hypoxia; I25.10 Atherosclerotic heart disease of native coronary artery without angina pectoris; I10 Essential (primary) hypertension; K21.9 Gastro-esophageal reflux disease without esophagitis; E78.5 Hyperlipidemia, unspecified; Z98.61 Coronary angioplasty status; Z78.9 Other specified health status; Z90.49 Acquired absence of other specified parts of digestive tract; Z95.1 Presence of aortocoronary bypass graft; Z87.891 Personal history of nicotine dependence; Z83.3 Family history of diabetes mellitus; Z82.0 Family history of epilepsy and other diseases of the nervous system; Z82.49 Family history of ischemic heart disease and other diseases of the circulatory system
CPT/HCPCS: 36415; 71045; 80053; 81001; 82550; 82728; 82948; 83605; 83615; 83874; 83880; 84145; 84484; 85025; 85378; 85610; 85730; 86140; 86850; 86900; 86901; 87040; 87088; 87804; 93005; 94760; 99291; G0378; J0456; J0696; J1100; J1650; J2930; J7120; U0003

== ENCOUNTER 2021-02-19 10:43 | Emergency (ER) | payer OTHER, MEDICARE ==
[~2021-02-19] VITALS: Ht 167.6 cm; Wt 74.8 kg
[~2021-02-19 10:43] MED LIST changes: +AMLO-257 PO; -AMLO5TAB9 PO; -ATOR20TA65 PO; -CARV12.511 PO; -LISI-613 PO
[2021-02-19 10:45] VITALS: BP 154/89
[2021-02-19] MEDS ORDERED: SOLU-MEDROL 125MG VIAL IVP ONE (11:30)
[2021-02-19] MEDS ORDERED: HYDROXYZINE 10 MG TABLET PO SCH (11:30)
[2021-02-19] MEDS ORDERED: LORATADINE 10 MG TABLET PO SCH (11:30)
[2021-02-19] MEDS ORDERED: HYD25 PO (11:43)
[2021-02-19 12:18] VITALS: BP 146/75
== END 2021-02-19 12:19 | disposition home or self-care (01) ==
LOC: EDH 10:43
DX: T78.49XA Other allergy, initial encounter (principal); E78.5 Hyperlipidemia, unspecified; I10 Essential (primary) hypertension; Z79.82 Long term (current) use of aspirin; Z79.899 Other long term (current) drug therapy; Z79.52 Long term (current) use of systemic steroids; Z95.5 Presence of coronary angioplasty implant and graft; X58.XXXA Exposure to other specified factors, initial encounter
CPT/HCPCS: J2930

== ENCOUNTER → 2022-06-21 | Outpatient (CLI) | payer OTHER, MEDICARE ==
[~2022-06-21] MED LIST changes: +HYD25 PO
== END | disposition home or self-care (01) ==
LOC: SHCH 12:34
PROVIDERS: ATTEND Internal Medicine Cardiovascular Disease
DX: I87.2 Venous insufficiency (chronic) (peripheral) (principal)
CPT/HCPCS: 93970

== ENCOUNTER → 2024-12-17 | Outpatient (CLI) | payer OTHER, MEDICARE ==
[2024-12-17] MEDS: REGADENOSON 0.4 MG/5 ML PF SYG IVP ONE (10:25)
--- NOTE | 2024-12-18 09:37 | HMCSR ---
APPROVED REPORT Height: 5 ft 6in Weight: 174 lbs TEST INDICATIONS Chest Pain The imaging protocol used to acquire images was Rest Tc-99m/stress Tc-99m 1 day Consent: The procedure was explained and understood by the patient. Informerd consent was witnessed Doris Sifuentes RN First, low dose rest was performed then high dose stress. RESTING DATA: The resting ekg shows: NSR Rest SPECT myocardial perfusion imaging was performed in supine position 56 minutes following the int ravenous injection of 10.7 mCi of Tc-99 Sestamibi. Time of rest injection: 821 Date: 12/17/2024 Time of rest imagin Date: 12/17/2024 PHARMACOLOGIC STRESS: Pharmacologic stress test was performed by injecting regadenoson 0.4 mg IV push followed by the intra venous injection of 31.4 mCi of Tc-99 Sestamibi. Time of stress injection: 943 Date: 12/17/2024 Time of stress imagin Date: 12/17/2024 Heart Rate at time of stress injection: 57 bpm. Gated Stress SPECT was performed 79 minutes after stress injection. The images were gated to evaluate regional wall motion and calculate left ventricular ejection fracti on. STRESS DETAILS Reason for Termination: Infusion complete Stress Symptoms: Dyspnea Max HR Achieved: 107 bpm % of APMHR Achieved: 76 Max Blood Pressure: 149/84 mmHg Stress ECG: NSR LEFT VENTRICLE Size: The left ventricular size is normal. Systolic Function:The left ventricular systolic function is mildly decreased. Wall Motion: Inferior hypokinesis. The left ventricular ejection fraction was calculated to be 52%.TID = . LV PERFUSION Fixed inferior wall defect. No reversible defects. Conclusion The left ventricular size is normal. The left ventricular systolic function is mildly decreased. Inferior hypokinesis. Fixed inferior wall defect. No reversible defects. The left ventricular ejection fraction was calculated to be 52%.
== END | disposition home or self-care (01) ==
LOC: SHCH 07:39
PROVIDERS: ATTEND Internal Medicine Cardiovascular Disease
DX: I51.89 Other ill-defined heart diseases (principal); R07.9 Chest pain, unspecified
CPT/HCPCS: 78452; 93017; J2785; A9500 ×2

== ENCOUNTER 2025-05-29 12:15 | Emergency (ER) | payer OTHER, MEDICARE ==
[~2025-05-29] VITALS: Ht 167.6 cm; Wt 78.9 kg
--- NOTE | 2025-05-29 12:39 | ERN ---
ED Note History of Present Illness Stated Complaint: HEARTBURN Chief Complaint: Heartburn/GI Distress Time Seen by MD: 12:18 Time Seen by Midlevel: 12:19 Dictation: 79-year-old male who presents to the emergency department due to reported having history of gastritis. He states that he feels a heartburn sensation for which she has been diagnosed with gastritis in the past. Currently, there is no report of any chest pain, chest pressure or shortness of breath associated with this. Upon initial evaluation, the patient presents in no acute distress. 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 Home Meds Active Scripts Hydroxyzine HCl (Atarax) 25 Mg Tab, 25 MG PO TID PRN for ITCHING for 5 Days, #20 TAB 0 Refills Prov:ANGELA WHITLOCK MD 02/19/21 Ticagrelor (Brilinta) 90 Mg Tablet, 90 MG PO BID, #60 TAB 2 Refills Prov:PAM AKERS MD 12/15/19 Reported Medications Buspirone HCl (Buspirone HCl) 5 Mg Tablet, 5 MG PO DAILY, TAB 12/13/19 Famotidine (Famotidine) 40 Mg Tablet, 40 MG PO HS, TAB 12/13/19 Lansoprazole (Lansoprazole) 30 Mg Capsule.dr, 30 MG PO DAILY, CAP 12/13/19 Nitroglycerin (Nitroglycerin) 0.4 Mg Tab.subl, 0.4 MG SL AD PRN for CHEST PAIN, TAB.SL 05/28/17 Tamsulosin HCl (Tamsulosin HCl) 0.4 Mg Cap.er.24h, 0.4 MG PO DAILY, CAPSULE.DR 05/28/17 Finasteride (Finasteride) 5 Mg Tablet, 5 MG PO DAILY, TAB 05/28/17 Aspirin (ASPIRIN 81MG CHEW TAB) 81 Mg Tab.chew, 81 MG PO AM, TAB.CHEW 09/08/16 Amlodipine Besylate (Amlodipine Besylate) 5 Mg Tablet, 5 MG PO AM, TAB 09/08/16 Past Medical History Past Medical History: GERD, High Cholesterol, Heart Disease, Hypertension Surgical History: Appendectomy, CABG Surgical History Other: CARDIAC STENTS PSYCH History: no pertinent psych hx Social History: Negative RN Note Reviewed/Agreed w/PFSH: Yes Review of System Dictation Abdomen/GI: Heartburn. Initial Vital Sign VS Vital Signs Date Time Temp Pulse Resp B/P (MAP) Pulse Ox O2 Delivery O2 Flow Rate FiO2 05/29/25 12:17 98.4 79 18 150/69 99 0 Physical Exam Dictation General: awake, alert, NAD Head/Face: Normocephalic, atraumatic Eyes: PERRL, EOMI ENT: Oral mucosa moist Neck: Trachea midline, supple Cardiovascular: RRR, no edema Respiratory: Symmetrical, non-labored Abdomen: Soft, non-tender, non-distended, no guarding. Skin: Warm, dry, good turgor, no rash MS/Extremity: Pulses equal, no cyanosis, neurovascular intact, FROM Neuro: COAx4, GCS 15, steady gait, Psych: Normal behavior, mood, and affect normal Results (Laboratory/Radiology) Laboratory/Radiology Laboratory Tests Test 05/29/25 12:46 05/29/25 14:35 White Blood Count 6.9 K/uL (4.8-10.8) Red Blood Count 5.07 MIL/uL (4.50-6.20) Hemoglobin 14.1 g/dL (14.0-18.0) Hematocrit 43.6 % (42-54) Mean Corpuscular Volume 86.0 fL (79-99) Mean Corpuscular Hemoglobin 27.8 pg (27.0-33.0) Mean Corpuscular Hemoglobin Concent 32.3 g/dL (32.0-36.0) Red Cell Distribution Width 14.7 % (11.0-15.5) Platelet Count 323 K/uL (130-400) Mean Platelet Volume 9.3 fL (7.5-10.5) Immature Granulocyte % (Auto) 0.4 % (0-1) Neutrophils (%) (Auto) 62.7 % (40.0-77.0) Lymphocytes (%) (Auto) 25.7 % (21.0-51.0) Monocytes (%) (Auto) 6.5 % (3.0-13.0) Eosinophils (%) (Auto) 4.3 % (0.0-8.0) Basophils (%) (Auto) 0.4 % (0.0-5.0) Neutrophils # (Auto) 4.3 K/uL (1.8-7.7) Lymphocytes # (Auto) 1.8 K/uL (1.0-4.8) Monocytes # (Auto) 0.5 K/uL (0.1-1.0) Eosinophils # (Auto) 0.30 K/uL (0.00-0.70) Basophils # (Auto) 0.03 K/uL (0.00-0.20) Absolute Immature Granulocyte (auto 0.03 K/uL (0-1) Nucleated Red Blood Cells 0.0 % (0.0-0.19) Sodium Level 138 mmol/L (136-145) Potassium Level 4.4 mmol/L (3.5-5.1) Chloride Level 100 mmol/L (101-111) L Carbon Dioxide Level 31 mmol/L (21-32) Blood Urea Nitrogen 11 mg/dL (7-18) Creatinine 0.8 mg/dL (0.5-1.3) Glomerular Filtration Rate Calc 89 mL/min (>90) Random Glucose 116 mg/dL (70-105) H Total Calcium 8.7 mg/dL (8.5-10.1) Total Bilirubin 0.5 mg/dL (0.2-1.0) Aspartate Amino Transf (AST/SGOT) 19 U/L (10-37) Alanine Aminotransferase (ALT/SGPT) 25 U/L (12-78) Alkaline Phosphatase 87 U/L (50-136) Troponin I High Sensitivity 10 ng/L (4-75) 11 ng/L (4-75) B-Type Natriuretic Peptide 82 pg/mL (0-100) Total Protein 7.9 g/dL (6.0-8.3) Albumin 4.0 g/dL (3.5-5.0) Labs Reviewed?: Yes EKG Comment: EKG DONE 05/29/2025 AT 12:14 P.M. THE VENTRICULAR RATE 76 BEATS PER MINUTE AK 195 MS QRS 141 MS QT 415 MS NO STEMI. X-RAY Comment: Chest x-ray one view with a normal-appearing cardiac silhouette as interpreted by me. Ultrasound Comment: Ultrasound negative for DVT of the right lower extremity pain ED Course ED Course Orders Procedure Category Date Status Time Troponin I High LAB 05/29/25 Complete Sensitivity 12:36 Cbc With Differential LAB 05/29/25 Complete 12:36 Comprehensive LAB 05/29/25 Complete Metabolic Panel 12:36 Chest 1vw RAD 05/29/25 Resulted 12:36 B-Type Natriuretic LAB 05/29/25 Complete Peptide 12:36 Troponin I High LAB 05/29/25 Complete Sensitivity 14:18 Vital Signs Date Time Temp Pulse Resp B/P (MAP) Pulse Ox O2 Delivery O2 Flow Rate FiO2 05/29/25 12:17 98.4 79 18 150/69 99 0 HEART Score Response (Comments) Value History: Low suspicion (0) 0 EKG: Normal 0 Age: > 65yrs (+2) 2 Risk Factors: 1-2 risk factors (+1) 1 Initial Troponin: Normal limit (0) 0 HEART Score Risk: Low Risk for MACE (1-3) Total 3 Medical Decision Making MDM MDM: Differential diagnosis: STEMI, CHEST PAIN, ANGINA. Rationale: Tests considered and ordered secondary to shared decision making include: Previous outside records reviewed: Old ER visits. Risk of complication and/or morbidity or mortality of patient management: None Medications-Per medication reconciliation Need for hospitalization: Patient does not meet criteria for hospitalization. Need for emergency major/minor surgery: No There are no social concerns with this patient. Prescription drug management Prescriptions will include symptomatic care Patient's prior external medical records from other ER visits were reviewed by me as indicated. Prior testing and results from previous visits were reviewed. Prior tests were taken into account with medical decision making and resource utilization, independent historian/historians were used to obtain complete medical history. I independently interpreted the test that were performed, results were reviewed by me and considered findings on radiology if ordered. Medical management and examination interpretation discussions were had by me with other qualified healthcare professionals as indicated for the patient's care. DX & DISP Disposition: Discharge Departure Impression: Primary Impression: Chest pain Additional Impression: History of gastritis Condition: Stable Referrals: THO BARAKAT M.D. (PCP) Time of Disposition: 15:30 LINCOLN SALTER May 29, 2025 12:39
[2025-05-29 12:51] LABS: IMMATURE GRANULOCYTE ABSOLUTE 0.03 K/uL (0-1); NUCLEATED RED BLOOD CELLS 0.0 % (0.0-0.19); PLATELET COUNT (AUTO) 323 K/uL (130-400); RED BLOOD CELL COUNT(AUTO) 5.07 MIL/uL (4.50-6.20); RED CELL DISTRIBUTION WIDTH 14.7 % (11.0-15.5); WHITE BLOOD COUNT (AUTO) 6.9 K/uL (4.8-10.8)
[2025-05-29 13:09] LABS: CREATININE 0.8 mg/dL (0.5-1.3); GLOMERULAR FILTR. RATE CALC 89.0 mL/min (>90); GLUCOSE,RANDOM 116.0 mg/dL (70-105); SODIUM SERUM 138.0 mmol/L (136-145); UREA NITROGEN, BLOOD 11.0 mg/dL (7-18)
[2025-05-29 13:14] LABS: ASPARTATE AMINOTRANSFERASE 19.0 U/L (10-37); TOTAL PROTEIN, SERUM 7.9 g/dL (6.0-8.3)
--- NOTE | 2025-05-29 13:41 | HMCIMG ---
EXAM: CR Chest, 1 View. CLINICAL HISTORY: pain COMPARISON: 01/24/20 6:55 EDT CR - CHEST 1VW FINDINGS: Prior median sternotomy changes. LUNGS: The lungs show no infiltrate or other acute finding. PLEURAL SPACES: No pleural effusion or pneumothorax. MEDIASTINUM: Cardiac size and mediastinal contours within normal limits. BONES: No aggressive appearing osseous lesion seen. IMPRESSION: No acute cardiopulmonary pathology is evident. /[place]
[2025-05-29 15:39] VITALS: BP 142/67; PULSE 67; RESP 16; TEMP 98.4; O2SAT 99
--- NOTE | 2025-05-30 11:45 | EKG ---
[facility] Test Date: 2025-05-29 Test Time: 12:14:23 Pat Name: ANIYA KING Department: ED Room: Gender: Procurement Director: [id number] : 1945 Requested By: LINCOLN SALTER Order Number: [id number] Reading MD: Chaitanya Fonseca Measurements Intervals [place] Rate: 76 P: 5 SD: 195 QRS: -6 QRSD: 141 T: 114 QT: 415 QTc: 469 Interpretive Statements Sinus rhythm Ventricular premature complex Left bundle branch block ST elevation secondary to IVCD Compared to ECG 01/18/2020 06:25:19 Ventricular premature complex(es) now present Intraventricular conduction delay now present ST (T wave) deviation now present Electronically Signed On 05-30-2025 18:56:07 WASTE WATER OPERATOR by Chaitanya Fonseca Please click the below link to view image of tracing.
== END 2025-05-29 15:51 | disposition home or self-care (01) ==
LOC: EDH 12:15
DX: R07.89 Other chest pain (principal); I10 Essential (primary) hypertension; E78.00 Pure hypercholesterolemia, unspecified; I44.7 Left bundle-branch block, unspecified; Z95.5 Presence of coronary angioplasty implant and graft; Z95.1 Presence of aortocoronary bypass graft; Z90.49 Acquired absence of other specified parts of digestive tract; Z79.899 Other long term (current) drug therapy; Z87.19 Personal history of other diseases of the digestive system
CPT/HCPCS: 36415; 71045; 80053; 83880; 84484; 85025; 93005; 99285